=== PATIENT | female | born 1955 | race Caucasian/White ===

== ENCOUNTER 2016-12-14 11:08 | Emergency (ER) | payer SELFPAY ==
[~2016-12-14] VITALS: Ht 152.4 cm; Wt 68.0 kg
[2016-12-14 11:10] VITALS: Ht 152.4 cm; Wt 68.0 kg
[2016-12-14 11:48] LABS: URINE BLOOD (Dip) POC 2+ (NEGATIVE)
[2016-12-14] MEDS ORDERED: IBUPROFEN 600 MG TAB PO ONE (12:00)
[2016-12-14] MEDS ORDERED: HYDROCODONE/APAP (5/325) TAB PO ONE (12:00)
[2016-12-14] MEDS ORDERED: NAPR-260 PO (12:24)
--- NOTE | 2016-12-14 12:29 | ERD ---
ER Documentation Chief Complaint Date/Time DATE: 12/14/16 TIME: 12:26 Chief Complaint pt bib self with c/o back pain x 3 days HPI This is a 61-year-old female presents to the ER with back pain for the last 3 days. Back pain is located on the left side and radiates down her buttocks. Patient states that back pain is like someone is stabbing her it is severe and constant. She has not tried any pain medication. Patient denies any urinary frequency or dysuria. Patient denies any falls. She denies any urinary bowel incontinence. She denies any saddle like anesthesia. She denies any nausea vomiting or diarrhea. She denies any fevers or chills. ROS 12 point review of systems was done, all negative except per HPI. Medications Home Meds Active Scripts Naproxen* (Naprosyn*) 500 Mg Tablet, 500 MG PO BID Y for PAIN AND/OR INFLAMMATION, #30 TAB Prov:KANDIS TREVIÑO 12/14/16 Allergies Allergies: Coded Allergies: No Known Allergy (Unverified , 12/14/16) PMhx/Soc Medical and Surgical Hx: pt denies Surgical Hx Hx Cardiac Disorders: Yes (HTN ) Hx Alcohol Use: No Hx Substance Use: No Hx Tobacco Use: Yes Smoking Status: Current every day smoker Physical Exam Vitals Vital Signs Date Time Temp Pulse Resp B/P Pulse Ox O2 Delivery O2 Flow Rate FiO2 12/14/16 11:10 98.3 74 18 100/58 100 Physical Exam GENERAL: The patient is well developed and appropriate for usual state of health , in no apparent distress. NECK: C-spine is soft and supple. There is no cervical lymphadenopathy. CHEST: Clear to auscultation bilaterally. There are no rales, wheezes or rhonchi. HEART: Regular rate and rhythm. No murmurs, clicks, rubs or gallops. ABDOMEN: Soft, nontender and nondistended. Good bowel sounds. No rebound or guarding. No gross peritonitis. No gross organomegaly or masses. No Haq sign or McBurney point tenderness. No pulsatile abdominal mass. BACK: No midline or flank tenderness. TTP along left buttock. Tense paraspinal muscles. Negative leg raise test. No step- offs. EXTREMITIES: Full range of motion. Grossly neurovascularly intact. NEURO: Alert and oriented. Results 24 hrs Laboratory Tests Test 12/14/16 11:47 Bedside Urine pH (LAB) 7.5 Bedside Urine Protein (LAB) Negative Bedside Urine Glucose (UA) Negative Bedside Urine Ketones (LAB) Negative Bedside Urine Blood 2+ Bedside Urine Nitrite (LAB) Negative Bedside Urine Leukocyte Esterase (L Negative Current Medications Medications (Trade) Dose Ordered Sig/Deuce Route PRN Reason Start Time Stop Time Status Last Admin Dose Admin Ibuprofen (Motrin) 600 mg ONCE ONCE PO 12/14/16 12:00 12/14/16 12:01 DC 12/14/16 11:46 Acetaminophen/ Hydrocodone Bitart ([place] (5/325)) 1 tab ONCE ONCE PO 12/14/16 12:00 12/14/16 12:01 DC 12/14/16 11:46 Procedures/MDM Differential Diagnosis includes but is not limited to back strain, vertebral fracture, epidural abscess, cauda equina, herniated disc, AAA rupture, kidney stones, UTI, pyelonephritis. This is a 61-year-old female presents to the ER with left-sided back pain that is been going on for the last 3 days. This is likely muscular in nature versus possible sciatica. At this time suspicion for fractures is low. Patient has not had any trauma to the area. Suspicion for cauda equina or epidural abscess is low. Patient is neurovascularly intact with full range of motion of bilateral lower extremities. She is also afebrile and well-appearing. Patient did not have a urinary tract infection however there was some blood in the urine, patient was told to urgently follow up with a urologist, as she does have a history of smoking and bladder malignancies should be ruled out. At this time I do not believe patient has kidney stones as she does not have any flank pain. Patient will be sent home with naproxen. She is to follow-up with her primary care doctor within 1-2 days return to ER sooner if symptoms worsen. My medical decision making was shared with patient she understands and agrees with plan. Departure Diagnosis: Primary Impression: Back pain Condition: Stable Patient Instructions: Back Pain (Acute Or Chronic) Additional Instructions: Call your primary care doctor TOMORROW for an appointment during the next 1-2 days.See the doctor sooner or return here if your condition worsens before your appointment time. KANDIS TREVIÑO Dec 14, 2016 12:29
[2016-12-14] MEDS ORDERED: TRAM50TA2 PO (12:30)
== END 2016-12-14 12:47 | disposition home or self-care (01) ==
LOC: FTE 11:08
DX: M54.9 Dorsalgia, unspecified (principal); F17.210 Nicotine dependence, cigarettes, uncomplicated; I10 Essential (primary) hypertension
CPT/HCPCS: 81003; 99283